=== PATIENT | male | born 1970 | race Two or more races ===

== ENCOUNTER 2022-10-11 18:20 | Emergency (ER) | payer MEDICAID, OTHER ==
[~2022-10-11] VITALS: Ht 182.9 cm; Wt 90.9 kg
[2022-10-11 18:25] VITALS: BP 120/96; PULSE 62; RESP 18; O2SAT 100
[2022-10-11] MEDS ORDERED: HYDR-4902 PO (20:12)
[2022-10-11] MEDS ORDERED: CLIN300C70 PO (20:12)
[2022-10-11] MEDS ORDERED: HYDROcodone-ACET 5/325MG TAB PO ONE (20:15)
[2022-10-11] MEDS ORDERED: CLINDAMYCIN HCL 150 MG CAP PO ONE (20:15)
[2022-10-11 20:29] VITALS: TEMP 98.3
== END 2022-10-11 20:26 | disposition home or self-care (01) ==
LOC: ER 18:20
DX: S02.5XXA Fracture of tooth (traumatic), initial encounter for closed fracture (principal); X58.XXXA Exposure to other specified factors, initial encounter; Y93.89 Activity, other specified; Y92.89 Other specified places as the place of occurrence of the external cause; Y99.8 Other external cause status